=== PATIENT | male | born 1935 | race Caucasian/White ===

== ENCOUNTER 2016-11-28 13:31 | Emergency (ER) | payer MEDICARE ==
[2016-11-28] MEDS ORDERED: MORPHINE SULFATE 10 MG/ML INJ IM ONE (15:34)
--- NOTE | 2016-11-28 15:44 | ER Document Report ---
ED Extremity Problem, Lower - General Chief Complaint: Leg Pain Stated Complaint: BACK AND KNEE PAIN Information source: Patient, Relative Notes: Patient is an 81-year-old male with past medical history as recorded who presents with his family. 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 Patient also has had a left knee replacement. Patient has had around 4-5 years of some right knee pain that has progressively gotten worse over the last 2-3 weeks. Patient has seen the primary care provider and today had an appointment with pain management but was unable to attend that appointment secondary to pain with movement and walking. The patient's pain is mostly to the right knee and right calf. There is been no leg swelling. There has been no chest pain, fevers, vomiting, or incontinence. Patient denies any pain increase in his lower back. Patient normally walks hunched over according to the family. TRAVEL OUTSIDE OF THE [place] IN LAST 30 DAYS: No - HPI Patient complains to provider of: Pain Location: Knee Occurred: Other - See above Where: Home Onset/Duration: Gradual Quality of pain: Achy Severity: Moderate Pain Level: 2 Context: Other - See above Recent injury: No Associated symptoms: Other - See above Exacerbated by: Movement, Walking Relieved by: Rest - Related Data Allergies/Adverse Reactions: No Known Allergies Allergy (Unverified 11/28/16 16:22) Past Medical History - General Information source: Patient - Social History Smoking Status: Unknown if Ever Smoked Cigarette use (# per day): No Chew tobacco use (# tins/day): No Smoking Education Provided: No Frequency of alcohol use: None Family History: Reviewed & Not Pertinent Review of Systems - Review of Systems Constitutional: denies: Fever Cardiovascular: denies: Chest pain Respiratory: denies: Short of breath Gastrointestinal: denies: Abdominal pain, Vomiting Genitourinary: denies: Dysuria, Incontinence - Nothing above baseline according to the family Musculoskeletal: denies: Leg swelling Skin: Other - no hives. denies: Rash Neurological/Psychological: Other - no slurred speech -: Yes All other systems reviewed and negative Physical Exam - Vital signs Vitals: Temp Pulse BP Pulse Ox 98 F 85 131/73 H 99 11/28/16 14:00 11/28/16 14:00 11/28/16 14:00 11/28/16 14:00 Notes: Reviewed vital signs and nursing note as charted by RN. CONSTITUTIONAL: Alert and oriented and responds appropriately to questions. Well -appearing; well-nourished HEAD: Normocephalic; atraumatic NECK: Supple CARD: Regular rate and rhythm; no murmurs, no clicks, no rubs, no gallops; symmetric distal pulses RESP: Normal chest excursion without splinting or tachypnea; breath sounds clear and equal bilaterally ABD/GI: Normal bowel sounds; non-distended; soft, non-tender BACK: The back appears normal with no swelling, induration, or erythema. No step-offs present. Mild tenderness to the left lateral paraspinal musculature region. EXT: Scar over the left knee consistent with prior surgery. The right knee and calf show no erythema or swelling. Patient is actually able to fully range his right knee. Neurovascular intact distally. SKIN: Normal color for age and race; warm; dry; good turgor; capillary refill < 2 seconds; no acute lesions noted NEURO: 5 out of 5 bilateral plantar foot flexion and extension with sensation intact to light touch. PSYCH: The patient's mood and manner are appropriate. Grooming and personal hygiene are appropriate. Course - Re-evaluation Re-evalutation: 11/28/16 15:43 Given the history and physical examination with the family's concern I will x- ray the right knee, CT the lower lumbar spine, and perform a Doppler to the right lower extremity given the family's concern that yesterday he was complaining more of calf pain or knee pain. 11/28/16 17:48 X-ray of the right knee and CT of the lumbar spine shows no acute fractures. Doppler ultrasound shows no clot in the right lower extremity. No change in examination. The patient has been taking half a tablet of oxycodone twice daily. I believe it is reasonable to have him increase this dosage to a full tablet twice daily. Patient also was not using the walker at home according to the family. I have expressed my concern about the importance of this to help relieve weight from his knee and his back. I will also provide an orthopedic surgeon. We have consulted social work to help the patient possibly receive a nighttime home health nurse as well. Patient will be discharged home with strict return precautions. - Vital Signs Vital signs: Temp Pulse Resp BP Pulse Ox 98 F 85 131/73 H 99 04/26/17 14:00 11/28/16 14:00 11/28/16 14:00 11/28/16 14:00 Discharge - Discharge Clinical Impression: Right knee pain Qualifiers: Chronicity: unspecified Qualified Code(s): M25.561 - Pain in right knee Lower back pain Qualifiers: Chronicity: unspecified Back pain laterality: right Sciatica presence: without sciatica Qualified Code(s): M54.5 - Low back pain Condition: Good Disposition: HOME, SELF-CARE Additional Instructions: Come back immediately with any increased pain, fevers, swelling or redness, increased weakness, or any other acute problems. Please follow-up with the primary doctor, an orthopedic surgeon, and pain management as we have discussed. I believe it is reasonable for the patient take a full 5 mg Percocet tablet twice daily. Please talk to the pharmacist about stool softeners to help avoid constipation. Please make sure that the patient uses his walker with ambulation to help relieve the weight off his right knee and lower back. Prescriptions: Oxycodone HCl/Acetaminophen [Percocet 5-325 mg Tablet] 1 tab PO BID #15 tablet Referrals: ALEKSANDRA POOL MD [Primary Care Provider] - Follow up as needed THOMAS ELLISON MD [ACTIVE STAFF] - Follow up as needed
--- NOTE | 2016-11-28 16:27 | XCELERA REPORT ---
[address] [address] Lower Extremity Venous Evaluation Name: DEANNA OBRIEN Age: 81 yrs Gender: Male : 1935 Patient Status: Emergency Patient Location: ER Study Date: 11/28/2016 03:59 PM Procedure: Color flow and duplex imaging of the veins of the right lower extremity as well as the left Common Femoral vein. Reason For Study: right lower extremity; room 16 Ordering Physician: LATRICE GARCIA Performed By: Cj Lopez Right Sided Venous Evaluation Normal vessel filling wall to wall, compression and augmentation as well as Colour flow down to the infrageniculate veins. Left Sided Venous Evaluation The left common femoral vein is fully compressible. Spontaneous and phasic flow is present in the left common femoral vein. Critical Findings Called in to the ER, Vandana Amador, at 1630. Interpretation Summary No duplex evidence of DVT or obstruction in the right lower extremity nor in the left Common Femoral vein. : LATRICE GARCIA > Ranjith Brunner
[2016-11-28 18:12] VITALS: BP 143/79
== END 2016-11-28 18:30 | disposition home or self-care (01) ==
LOC: ER 13:31
DX: M25.561 Pain in right knee (principal); M54.5 Low back pain; Z96.652 Presence of left artificial knee joint
CPT/HCPCS: 99284; 96372; 93971 ×2; 73564; 72131; J2270

== ENCOUNTER 2017-04-11 11:47 | Emergency (ER) | payer MEDICARE ==
--- NOTE | 2017-04-11 12:06 | ER Document Report ---
ED Medical Screen (RME) - General Chief Complaint: Leg Swelling Stated Complaint: ABNORMAL LABS Time Seen by Provider: 04/11/17 12:04 Notes: Patient was sent from Dr. Golden's office. Family reports that the patient has 2 blood clots in his leg that were diagnosed today. No previous history of DVTs. Patient has had no chest pain or shortness of breath. Family states that they were told by Dr. Golden that they were to come to the emergency department to have a possible CT scan of the lungs as well as for admission to the hospital. Patient does not currently take any blood thinners. TRAVEL OUTSIDE OF THE [place] IN LAST 30 DAYS: No - Related Data Allergies/Adverse Reactions: No Known Allergies Allergy (Verified 04/11/17 11:55) Past Medical History - Social History Frequency of alcohol use: Rare Drug Abuse: None Renal/ Medical History: Denies: Hx Peritoneal Dialysis Physical Exam - Vital signs Vitals: Temp Pulse Resp BP Pulse Ox 97.9 F 90 16 137/82 H 96 04/11/17 11:56 04/11/17 11:56 04/11/17 11:56 04/11/17 11:56 04/11/17 11:56 Course - Vital Signs Vital signs: Temp Pulse Resp BP Pulse Ox 97.9 F 90 16 137/82 H 96 04/11/17 11:56 04/11/17 11:56 04/11/17 11:56 04/11/17 11:56 04/11/17 11:56
[2017-04-11 12:51] LABS: ABSOLUTE BASOPHILS # (AUTO) 0.1 10^3/uL (0.0-0.2); ABSOLUTE EOSINOPHILS # (AUTO) 0.1 10^3/uL (0.0-0.6); ABSOLUTE LYMPHOCYTES (AUTO) 1.2 10^3/uL (0.5-4.7); ABSOLUTE MONOCYTES (AUTO) 0.8 10^3/uL (0.1-1.4); ABSOLUTE NEUT (AUTO) 7.8 10^3/uL (1.7-8.2); BASOPHILS % (AUTO) 0.7 % (0-2); EOSINOPHILS % (AUTO) 0.8 % (0-6); HEMATOCRIT 47.4 % (37.9-51.0); HEMOGLOBIN 16.4 g/dL (13.5-17.0); HGB HCT DIFFERENCE 1.8; LYMPHOCYTES % (AUTO) 12.4 % (13-45); MEAN CORPUSCULAR HEMOGLOBIN 33.4 pg (27.0-33.4); MEAN CORPUSCULAR HGB CONC 34.6 g/dL (32.0-36.0); MEAN CORPUSCULAR VOLUME 97 fl (80-97); RED BLOOD COUNT 4.92 10^6/uL (4.35-5.55); RED CELL DISTRIBUTION WIDTH 14.4 % (11.5-14.0); SEGMENTED NEUTROPHILS % (AUTO) 78.1 % (42-78); WHITE BLOOD COUNT 9.9 10^3/uL (4.0-10.5)
[2017-04-11 13:13] LABS: ALANINE AMINOTRANSFERASE 36 U/L (21-72); ALBUMIN 3.9 g/dL (3.5-5.0); ALKALINE PHOSPHATASE 131 U/L (38-126); ANION GAP 9 (5-19); ASPARTATE AMINO TRANSFERASE 46 U/L (17-59); BILIRUBIN,DIRECT 0.3 mg/dL (0.0-0.4); BILIRUBIN,TOTAL 1.3 mg/dL (0.2-1.3); BLOOD UREA NITROGEN 19 mg/dL (7-20); CALCIUM 9.7 mg/dL (8.4-10.2); CARBON DIOXIDE 29 mmol/L (22-30); CHLORIDE 102 mmol/L (98-107); CREATININE RESULT 0.67 mg/dL (0.52-1.25); GLUCOSE 82 mg/dL (75-110); POTASSIUM 3.8 mmol/L (3.6-5.0); SODIUM 139.8 mmol/L (137-145); TOTAL PROTEIN 7.2 g/dL (6.3-8.2)
--- NOTE | 2017-04-11 14:00 | ER Document Report ---
ED General - General Information source: Patient, Relative - anuja TRAVEL OUTSIDE OF THE [place] IN LAST 30 DAYS: No <BIANCA EDWARDS - Last Filed: 04/11/17 14:41> <TEMITOPE LYNN - Last Filed: 04/11/17 15:08> - General Chief Complaint: Leg Swelling Stated Complaint: ABNORMAL LABS Time Seen by Provider: 04/11/17 12:04 Notes: Patient is an 81 year old male who presents to the ED with complaints of bilateral lower extremity, worse in ankles. Patient was seen by his PCP Dr. Roldan and was subsequently seen by Dr. Golden and diagnosed with DVT x2 in his left lower extremity. Patient denies any chest pain or sob. (BIANCA EDWARDS) Swelling has been present for approximately a week and a half. No prior history of deep vein thrombosis. No history of pulmonary emboli. (TEMITOPE LYNN) - Related Data Allergies/Adverse Reactions: No Known Allergies Allergy (Verified 04/11/17 11:55) Past Medical History - General Information source: Patient - Social History Smoking Status: Former Smoker Frequency of alcohol use: Rare Drug Abuse: None Family History: Reviewed & Not Pertinent Patient has suicidal ideation: No Patient has homicidal ideation: No Renal/ Medical History: Denies: Hx Peritoneal Dialysis <BIANCA EDWARDS - Last Filed: 04/11/17 14:41> Review of Systems - Review of Systems Constitutional: No symptoms reported EENT: No symptoms reported Cardiovascular: See HPI. denies: Chest pain Respiratory: See HPI. denies: Short of breath Gastrointestinal: No symptoms reported Genitourinary: No symptoms reported Male Genitourinary: No symptoms reported Musculoskeletal: See HPI, Leg swelling Skin: No symptoms reported Hematologic/Lymphatic: No symptoms reported Neurological/Psychological: No symptoms reported <BIANCA EDWARDS - Last Filed: 04/11/17 14:41> Physical Exam - General General appearance: Appears well, Alert In distress: None - HEENT Head: Normocephalic, Atraumatic Eyes: Normal Extraocular movements intact: Yes Pupils: PERRL - Respiratory Respiratory status: No respiratory distress Breath sounds: Normal - Cardiovascular Rhythm: Regular Heart sounds: Normal auscultation Murmur: No - Abdominal Inspection: Normal Tenderness: Nontender - Extremities General upper extremity: Normal inspection, Normal ROM General lower extremity: Edema - 2 plus pitting edema in bilateral lower extremities, no erythema, Normal ROM - Neurological Neuro grossly intact: Yes - Psychological Associated symptoms: Normal affect, Normal mood - Skin Skin Temperature: Warm Skin Moisture: Dry Skin Color: Normal <BIANCA EDWARDS - Last Filed: 04/11/17 14:41> - Vital signs Vitals: Temp Pulse Resp BP Pulse Ox 97.9 F 90 16 137/82 H 96 04/11/17 11:56 04/11/17 11:56 04/11/17 11:56 04/11/17 11:56 04/11/17 11:56 Course - Laboratory Result Diagrams: 04/11/17 12:20 04/11/17 12:20 - Consults Transfer Line Time consulted: 14:06 Dr. Roldan Office Time consulted: 14:09 <BIANCA EDWARDS - Last Filed: 04/11/17 14:41> - Laboratory Result Diagrams: 04/11/17 12:20 04/11/17 12:20 <TEMITOPE LYNN - Last Filed: 04/11/17 15:08> - Re-evaluation Re-evalutation: 04/11/17 14:54 Pleasant 81-year-old male with some degree of dementia sent to the emergency department by Dr. Golden for further evaluation of deep vein thrombosis. I spoke with Dr. Golden myself earlier. He was deferring further evaluation the emergency department, including consideration for CT angiogram as well as for consideration for admission to the hospital. The patient is not having any chest pain, shortness of breath. He is not having any tachycardia or hypoxia. There is no indication of pulmonary emboli. The patient did undergo ultrasound of both legs and of his heart at Dr. Golden' s office. While I do not have a report for the echocardiogram, the family was told that looked fine. I presume there is no right heart strain. I have discussed the differential diagnosis with the family and considerations for CT scan or not. They are comfortable not performing a CT. I have called Dr. Barrientos's office. Dr. Barrientos is comfortable not pursuing the CT given the fact that the patient does not have any clinical signs or symptoms of pulmonary emboli. Dr. Barrientos's office will see the patient tomorrow morning at 10:00. They agree with discharge on an anticoagulant. (TEMITOPE LYNN) - Vital Signs Vital signs: Temp Pulse Resp BP Pulse Ox 97.9 F 90 16 137/82 H 96 04/11/17 11:56 04/11/17 11:56 04/11/17 11:56 04/11/17 11:56 04/11/17 11:56 - Laboratory Laboratory results interpreted by me: 04/11/17 04/11/17 12:20 12:20 RDW 14.4 H Seg Neutrophils % 78.1 H Lymphocytes % 12.4 L Alkaline Phosphatase 131 H - Consults Transfer Line Reason for consultation: 04/11/17 14:06. They will find where Dr. Roldan is and they will call back. (BIANCA EDWARDS) Dr. Roldan Office Reason for consultation: 04/11/17 14:09 Discussed patient. A message will be relayed to Dr. Roldan and she will call back. 04/11/17 14:[address] Roldan will see patient tomorrow morning in her office. (BIANCA EDWARDS) Discharge <BIANCA EDWARDS - Last Filed: 04/11/17 14:41> <TEMITOPE LYNN - Last Filed: 04/11/17 15:08> - Discharge Condition: Good Disposition: HOME, SELF-CARE Instructions: DVT Outpatient Treatment ([facility]) Additional Instructions: Your situation was discussed with her primary physician, Dr. Barrientos. She agreed with the testing we did in the emergency department today and will be able to see you tomorrow morning at 10 AM. Please go to her office tomorrow morning. Take Eliquis twice a day. Return to the emergency department if you have any shortness of breath, chest pain, or other urgent concerns. Prescriptions: Apixaban [Eliquis 2.5 mg Tablet] 2.5 mg PO BID 30 Days #60 tablet Referrals: CAMILO BARRIENTOS DO [Primary Care Provider] - Follow up as needed Scribe Documentation - Scribe Written by Camleiae:: lisette Jurado, 04/11/2017, 0847 acting as scribe for :: John <BIANCA EDWARDS - Last Filed: 04/11/17 14:41>
[2017-04-11] MEDS ORDERED: APIXABAN 2.5 MG TABLET PO ONE (14:57)
[2017-04-11 15:14] VITALS: BP 140/95
== END 2017-04-11 15:26 | disposition home or self-care (01) ==
LOC: ER 11:47
DX: I82.492 Acute embolism and thrombosis of other specified deep vein of left lower extremity (principal); M79.89 Other specified soft tissue disorders; M79.604 Pain in right leg; M79.605 Pain in left leg; M25.571 Pain in right ankle and joints of right foot; M25.572 Pain in left ankle and joints of left foot; Z87.891 Personal history of nicotine dependence; F03.90 Unspecified dementia, unspecified severity, without behavioral disturbance, psychotic disturbance, mood disturbance, and anxiety
CPT/HCPCS: 99284; 36415; 85025; 85610; 85730; 80053; A9270

== ENCOUNTER 2017-05-06 07:19 | Emergency (ER) | payer MEDICARE ==
[2017-05-06] MEDS ORDERED: HYDROCODONE/ACETAMINOPHEN 5-325 MG TABLET PO ONE (07:41)
--- NOTE | 2017-05-06 08:43 | RADIOLOGY REPORT (SQ) ---
EXAM DESCRIPTION: CHEST PA/LAT COMPLETED DATE/TIME: 05/06/2017 8:27 am REASON FOR STUDY: right upper extremity edema COMPARISON: Two-view chest 09/28/2008 EXAM PARAMETERS: NUMBER OF VIEWS: two views TECHNIQUE: Digital Frontal and Lateral radiographic views of the chest acquired. RADIATION DOSE: NA LIMITATIONS: none FINDINGS: LUNGS AND PLEURA: Chronic elevation left hemidiaphragm. No focal infiltrates. No pleural effusion. No pneumothorax. MEDIASTINUM AND HILAR STRUCTURES: No masses or contour abnormalities. HEART AND VASCULAR STRUCTURES: Heart normal size. No evidence for failure. BONES: Osteopenic. Narrowed left subacromial space likely indicates rotator cuff disease. HARDWARE: None in the chest. OTHER: No other significant finding. IMPRESSION: No acute findings. Chronic elevation left hemidiaphragm unchanged from 2008 TECHNICAL DOCUMENTATION: JOB ID: [id number] [employer]- All Rights Reserved
--- NOTE | 2017-05-06 08:51 | RADIOLOGY REPORT (SQ) ---
EXAM DESCRIPTION: SHOULDER RIGHT 2 OR MORE VIEWS COMPLETED DATE/TIME: 05/06/2017 8:27 am REASON FOR STUDY: fall COMPARISON: None. NUMBER OF VIEWS: Three views. TECHNIQUE: Internal rotation, external rotation, and Y view images acquired of the right shoulder. LIMITATIONS: None. FINDINGS: MINERALIZATION: Osteoporotic BONES: No acute fracture or dislocation. No worrisome bone lesions. JOINTS: No glenohumeral joint malalignment. No acromioclavicular joint widening. Mild AC joint bony spurring. VISUALIZED LUNGS AND RIBS: No pneumothorax. No rib fracture. SOFT TISSUES: No radiopaque foreign body. OTHER: No other significant finding. IMPRESSION: No acute changes. TECHNICAL DOCUMENTATION: JOB ID: [id number] [employer]- All Rights Reserved
--- NOTE | 2017-05-06 08:52 | RADIOLOGY REPORT (SQ) ---
EXAM DESCRIPTION: WRIST RIGHT 3 VIEWS COMPLETED DATE/TIME: 05/06/2017 8:27 am REASON FOR STUDY: fall COMPARISON: None. NUMBER OF VIEWS: Three views. TECHNIQUE: AP, lateral, and oblique radiographic images acquired of the right wrist. LIMITATIONS: None. FINDINGS: MINERALIZATION: Osteoporotic BONES: No acute fracture or dislocation. No worrisome bone lesions. Normal alignment. SOFT TISSUES: Diffuse right wrist soft tissue swelling. No foreign body. OTHER: There is chondrocalcinosis along the triangular fibrocartilage. Small intra-articular loose b odies are seen along the ulnar aspect of the joint adjacent to the ulnar styloid. IMPRESSION: Soft tissue swelling. No acute fracture. TECHNICAL DOCUMENTATION: JOB ID: [id number] [employer]- All Rights Reserved
--- NOTE | 2017-05-06 09:18 | RADIOLOGY REPORT (SQ) ---
EXAM DESCRIPTION: VENOUS UNILATERAL UPPER COMPLETED DATE/TIME: 05/06/2017 9:07 am REASON FOR STUDY: right upper extremity edema COMPARISON: None. TECHNIQUE: Dynamic and static marmolejo scale and color images acquired of the right arm venous system. S elected spectral images acquired with additional compression and augmentation maneuvers. The contrala teral subclavian vein and internal jugular vein were also imaged. Images stored on PACS. LIMITATIONS: None. FINDINGS: INTERNAL JUGULAR VEIN: Normal phasicity, compression, augmentation. No visualized echogeni c material on marmolejo scale. No defects on color images. Comparison opposite side normal. SUBCLAVIAN VEIN: Normal compression, augmentation. No visualized echogenic material on marmolejo scale. No defects on color images. AXILLARY VEIN: Normal compression, augmentation. No visualized echogenic material on marmolejo scale. No d efects on color images. BRACHIAL VEIN: Normal compression, augmentation. No visualized echogenic material on marmolejo scale. No d efects on color images. BASILIC VEIN: Normal compression, augmentation. No visualized echogenic material on marmolejo scale. No de fects on color images. CEPHALIC VEIN: Normal compression, augmentation. No visualized echogenic material on marmolejo scale. No d efects on color images. OTHER: No other significant finding. CONTRALATERAL SUBCLAVIAN VEIN AND INTERNAL JUGULAR VEIN: Normal phasicity, compression and augmentation. No visualized echogenic material on marmolejo scale. No de fects on color images. IMPRESSION: NO EVIDENCE DVT OR SVT IN THE RIGHT ARM. TECHNICAL DOCUMENTATION: JOB ID: [id number] [employer]- All Rights Reserved
[2017-05-06] MEDS ORDERED: ONDANSETRON 4 MG TAB.RAPDIS ONE (09:34)
--- NOTE | 2017-05-06 09:44 | RADIOLOGY REPORT (SQ) ---
EXAM DESCRIPTION: ELBOW RIGHT OVER 2 VIEWS COMPLETED DATE/TIME: 05/06/2017 8:27 am REASON FOR STUDY: fall COMPARISON: None. NUMBER OF VIEWS: Four views. TECHNIQUE: AP, lateral, and both oblique radiographic images acquired of the right elbow. LIMITATIONS: None. FINDINGS: MINERALIZATION: Osteoporotic BONES: No acute displaced fracture is identified. There is bony spurring along the distal humerus, p roximal radius and proximal ulna. JOINT: Definite joint effusion with elevation of the ventral and dorsal fat pads. Few loose bodies a long the dorsal aspect of the ulnohumeral joint. Chondrocalcinosis at the elbow joint SOFT TISSUES: Dorsal soft tissue swelling. Definite elbow joint effusion. No radiopaque foreign body or soft tissue gas OTHER: No other significant finding. IMPRESSION: There is an elbow joint effusion. No acute displaced fracture of the distal humerus, or proximal radius or ulna. Osteoarthritis right elbow If there is continued pain, recommend plain films in 7 to 10 days to evaluate for radiographically oc cult fracture. TECHNICAL DOCUMENTATION: JOB ID: [id number] [employer]- All Rights Reserved
--- NOTE | 2017-05-06 09:46 | ER Document Report ---
ED General - General Chief Complaint: Arm Injury Stated Complaint: RIGHT ARM PAIN Time Seen by Provider: 05/06/17 07:23 Mode of Arrival: Ambulatory Information source: Patient Notes: 81 yr old male on xarelto for blood clot presents with complaints of right arm swelling over the past 3-4 days after a fall. Pt admits to pain with rom. denies any fevers or chills, denies any sob or chest pain TRAVEL OUTSIDE OF THE [place] IN LAST 30 DAYS: No - HPI Onset: Last week Onset/Duration: Persistent Quality of pain: Achy Severity: Mild Pain Level: 1 Associated symptoms: Other Exacerbated by: Movement Relieved by: Denies Similar symptoms previously: No Recently seen / treated by doctor: No - Related Data Allergies/Adverse Reactions: No Known Allergies Allergy (Verified 05/06/17 07:36) Home Medications: Current Home Medications Donepezil HCl 23 mg PO DAILY 05/06/17 [History] Ergocalciferol (Vitamin D2) [Vitamin D2] 50,000 unit PO ASDIR PRN 05/06/17 [ History] Garlic [Garlic Oil] 1 each PO DAILY 05/06/17 [History] Levothyroxine Sodium 125 mcg PO DAILY 05/06/17 [History] Multivitamin [Multiple Vitamins] 1 each PO DAILY 05/06/17 [History] Pravastatin Sodium 40 mg PO DAILY 05/06/17 [History] Quetiapine Fumarate [Seroquel] 50 mg PO DAILY 05/06/17 [History] Rivaroxaban [Xarelto] 20 mg PO DAILY 05/06/17 [History] Past Medical History - Social History Smoking Status: Former Smoker Cigarette use (# per day): No Chew tobacco use (# tins/day): No Smoking Education Provided: No Frequency of alcohol use: Rare Drug Abuse: None Family History: Reviewed & Not Pertinent Patient has suicidal ideation: No Patient has homicidal ideation: No - Past Medical History Cardiac Medical History: Reports: Hx Atrial Fibrillation Renal/ Medical History: Denies: Hx Peritoneal Dialysis - Immunizations Hx Diphtheria, Pertussis, Tetanus Vaccination: Yes Review of Systems - Review of Systems Notes: REVIEW OF SYSTEMS: CONSTITUTIONAL : Denies fever, chills, or sweats. Denies recent illness. EENT: Denies eye, ear, throat, or mouth pain or symptoms. Denies nasal or sinus congestion or discharge. Denies throat, tongue, or mouth swelling or difficulty swallowing. CARDIOVASCULAR: Denies chest pain. Denies palpitations or racing or irregular heart beat. Denies ankle edema. RESPIRATORY: Denies cough, cold, or chest congestion. Denies shortness of breath, difficulty breathing, or wheezing. GASTROINTESTINAL: Denies abdominal pain or distention. Denies nausea, vomiting , or diarrhea. Denies blood in vomitus, stools, or per rectum. Denies black, tarry stools. Denies constipation. GENITOURINARY: Denies difficulty urinating, painful urination, burning, frequency, blood in urine, or discharge. MUSCULOSKELETAL: Right upper extremity edema SKIN: Denies rash, lesions or sores. HEMATOLOGIC : Denies easy bruising or bleeding. LYMPHATIC: Denies swollen, enlarged glands. NEUROLOGICAL: Denies confusion or altered mental status. Denies passing out or loss of consciousness. Denies dizziness or lightheadedness. Denies headache. Denies weakness or paralysis or loss of use of either side. Denies problems with gait or speech. Denies sensory loss, numbness, or tingling. Denies seizures. PSYCHIATRIC: Denies anxiety or stress. Denies depression, suicidal ideation, or homicidal ideation. ALL OTHER SYSTEMS REVIEWED AND NEGATIVE. Dictation was performed using [employer] voice recognition software PHYSICAL EXAMINATION: GENERAL: Well-appearing, well-nourished and in no acute distress. HEAD: Atraumatic, normocephalic. EYES: Pupils equal round and reactive to light, extraocular movements intact, sclera anicteric, conjunctiva are normal. ENT: Nares patent, oropharynx clear without exudates. Moist mucous membranes. NECK: Normal range of motion, supple without lymphadenopathy LUNGS: Breath sounds clear to auscultation bilaterally and equal. No wheezes rales or rhonchi. HEART: Regular rate and rhythm without murmurs ABDOMEN: Soft, nontender, nondistended abdomen. No guarding, no rebound. No masses appreciated. Musculoskeletal: Right upper extremity edema ecchymosis noted full range of motion with tenderness NEUROLOGICAL: Patient is noted to have a history of dementia but is able to answer questions PSYCH: Normal mood, normal affect. SKIN: Warm, Dry, normal turgor, no rashes or lesions noted. Physical Exam - Vital signs Vitals: Temp Pulse Resp BP Pulse Ox 98.2 F 83 18 136/69 H 96 05/06/17 10:00 05/06/17 10:00 05/06/17 10:00 05/06/17 10:00 05/06/17 10:00 Course - Re-evaluation Re-evalutation: 05/06/17 15:42 Given history of blood clots right upper extremity edema obvious concern for clot was noted, Doppler was negative x-rays were negative no signs of mass congestive heart failure As a result I believe his swelling may be secondary to being on the blood thinner in the recent fall I explained to the daughters about very strict return precautions no sign of infection at this time After performing a Medical Screening Examination, I estimate there is LOW risk for INTRACRANIAL HEMORRHAGE, UNSTABLE SPINE FRACTURE, CENTRAL CORD SYNDROME, CAUDA EQUINA, THORACIC AORTIC DISSECTION, PNEUMOTHORAX, PERFORATED BOWEL, RUPTURED ABDOMINAL AORTIC ANEURYSM, ACUTE TENDON RUPTURE, COMPARTMENT SYNDROME, or OPEN FRACTURE, thus I consider the discharge disposition reasonable. Also, there is no evidence or peritonitis, sepsis, or toxicity. I have reevaluated this patient multiple times and no significant life threatening changes are noted. The patient and I have discussed the diagnosis and risks, and we agree with discharging home to follow-up with their primary doctor with the understanding that symptoms and presentations can change. We also discussed returning to the Emergency Department immediately if new or worsening symptoms occur. We have discussed the symptoms which are most concerning (e.g., bloody stool, fever, changing or worsening pain, vomiting) that necessitate immediate return. - Vital Signs Vital signs: Temp Pulse Resp BP Pulse Ox 98.2 F 83 18 136/69 H 96 05/06/17 10:00 05/06/17 10:00 05/06/17 10:00 05/06/17 10:00 05/06/17 10:00 - Diagnostic Test Radiology reviewed: Image reviewed, Reports reviewed - No acute abnormality Discharge - Discharge Clinical Impression: right upper extremity edema Condition: Stable Disposition: HOME, SELF-CARE Instructions: Edema, Peripheral ([facility]) Referrals: CAMILO POOL, [Primary Care Provider] - Follow up tomorrow
[2017-05-06 10:06] VITALS: BP 136/69
== END 2017-05-06 10:12 | disposition home or self-care (01) ==
LOC: ER 07:19
DX: R60.0 Localized edema (principal); S40.021A Contusion of right upper arm, initial encounter; W19.XXXA Unspecified fall, initial encounter; I48.91 Unspecified atrial fibrillation; Z79.01 Long term (current) use of anticoagulants; Z87.891 Personal history of nicotine dependence; Z86.718 Personal history of other venous thrombosis and embolism
CPT/HCPCS: 99284; 93971; 71020; 73080; 73030; 73110; A9270